=== PATIENT | female | born 1935 | race Caucasian/White ===

== ENCOUNTER 2016-12-21 08:40 | Day surgery (SDC) | payer MEDICARE ==
--- NOTE | ~2016-12-21 | EGD ---
EGD REPORT [facility] [address] [place] [address] NAME: IRIS KRISHNA : 37 STATUS : REG [facility]#: [id number] AGE: 81 ADM/REG DATE : 12/21/16 MR#: [id number] REPORT SERV DATE: 12/21/16 DICTATED BY: AVA MEDEIROS DATE: 12/21/16 REPORT STATUS : Draft TRANSCRIBED BY: [employer] DATE: 12/21/16 [facility] Patient Name: Iris Krishna. Date of : 1935 Attending MD: AVA MEDEIROS MD Procedure Date No Time: 12/21/2016 Procedure: Upper GI endoscopy Indications: Follow-up of acute gastric ulcer Referring MD: MOUNA CHAO Medicines: See the Anesthesia note for documentation of the administered medications Complications: No immediate complications. Procedure: Pre-Anesthesia Assessment: - ASA Grade Assessment: III - A patient with severe systemic disease. After obtaining informed consent, the endoscope was passed under direct vision. Throughout the procedure, the patient's blood pressure, pulse, and oxygen saturations were monitored continuously. The GIF [id number] was introduced through the mouth, and advanced to the second part of duodenum. The upper GI endoscopy was accomplished without difficulty. The patient tolerated the procedure well. Findings: The examined duodenum was normal. The examined esophagus was tortuous. Fundoplication with suture material at GE junction on retroflexion A medium amount of food (residue) was found in the gastric body. Impression: - Normal examined duodenum. - Tortuous esophagus. - Fundoplication with suture material at GE junction on retroflexion - A medium amount of food (residue) in the stomach. Recommendation: - Patient has a contact number available for emergencies. The signs and symptoms of potential delayed complications were discussed with the patient. Return to normal activities tomorrow. Written discharge instructions were provided to the patient. - Regular diet. - Continue present medications. - Eat 1/2 size meals with small snack in between - Follow up with Dr Medeiros or his nurse practitioner in EGD REPORT [address] [place]. [address] NAME: IRIS KRISHNA : 37 STATUS : REG [facility] PAT#: [id number] AGE: 81 ADM/REG DATE : 12/21/16 MR#: [id number] REPORT SERV DATE: 12/21/16 DICTATED BY: AVA MEDEIROS DATE: 12/21/16 REPORT STATUS : Draft TRANSCRIBED BY: [email or web address] DATE: 12/21/16 6 weeks Procedure Code(s): --- Professional --- 36688, Esophagogastroduodenoscopy, flexible, transoral; diagnostic, including collection of specimen(s) by brushing or washing, when performed (separate procedure) Diagnosis Code(s): --- Professional --- Q39.9, Congenital malformation of esophagus, unspecified K25.3, Acute gastric ulcer without hemorrhage or perforation CPT copyright 2013 [employer]. All rights reserved. The codes documented in this report are preliminary and upon putty mixer and applier review may be revised to meet current compliance requirements. Ava Medeiros MD AVA MEDEIROS MD 12/21/2016 9:34 AM This report has been signed electronically. Number of Addenda: 0 Note Initiated On: 12/21/2016 9:16 AM Scope Withdrawal Time 0 hours 0 minutes 0 seconds [address] [place] [address]
[~2016-12-21 08:40] MED LIST: ASABAYER PO; BIOTIN5 MG PO; BREO ELLIPTA INH; CALTRA600D PO; CENTRUM TAB1 TAB PO; COREG6 PO; FISH OIL1200 MG PO; MULTIPLE VIT PO; NEXIUM40 PO; OS500+D PO; PLAVIX PO; PRAVACHOL40 MG PO; PREV15 PO; PROTONIX PO; QUESLITE PO; QUESTRAN4 GM PO
== END 2016-12-21 23:59 | disposition home health service (06) ==
LOC: DMU 08:40
PROVIDERS: Internal Medicine Gastroenterology
PROC: 0DJ08ZZ Inspection of Upper Intestinal Tract, Via Natural or Artificial Opening Endoscopic (ICD-10-PCS; principal; 2016-12-21 10:00)
DX: K25.3 Acute gastric ulcer without hemorrhage or perforation (principal); I10 Essential (primary) hypertension; I25.10 Atherosclerotic heart disease of native coronary artery without angina pectoris; Q39.9 Congenital malformation of esophagus, unspecified; K21.9 Gastro-esophageal reflux disease without esophagitis; M81.0 Age-related osteoporosis without current pathological fracture; E78.00 Pure hypercholesterolemia, unspecified; Z88.2 Allergy status to sulfonamides; Z88.8 Allergy status to other drugs, medicaments and biological substances; Z79.899 Other long term (current) drug therapy; Z87.891 Personal history of nicotine dependence; Z90.49 Acquired absence of other specified parts of digestive tract; Z98.890 Other specified postprocedural states